=== PATIENT | male | born 1980 | race Caucasian/White ===

== ENCOUNTER 2017-12-27 08:32 | Inpatient (IN) | payer SELFPAY ==
[~2017-12-27] VITALS: Ht 185.4 cm; Wt 76.4 kg
[2017-12-27] VITALS (8 sets, daily range): BP systolic 104–128; BP diastolic 55–69; PULSE 69–82; RESP 18–20; TEMP 97.8–98.7; O2SAT 95–98
[2017-12-27] MEDS ORDERED: ATRITAB PO (08:38)
[2017-12-27] MEDS ORDERED: KETOROLAC TROMETHAMINE 30 MG/ML (IVP) VIAL IV PUSH ONE (08:45)
--- NOTE | 2017-12-27 08:49 | PD ---
HPI Chief Complaint: Cold / Flu Symptoms Time Seen by Provider: 08:38 Travel History International Travel<30 days: No Contact w/Intl Traveler<30days: No Traveled to known affect area: No History of Present Illness HPI 37yo M with PMH of HIV on HAART with CD4 count in the 800s presents to the ED with c/o right sided chest pain and rib pain for 2 days. Associated with cough that has blood in sputum and sob. Pain is worst with lying down and movement. Denies any fever, n/v, abdominal pain, focal weakness or numbness. Denies any trauma or fall. PFSH Past Medical History Diminished Hearing: No Immune Disorder: Yes (HIV) Influenza Vaccination: No ?: Not Social History Alcohol Use: No Tobacco Use: Yes Allergies-Medications (Allergen,Severity, Reaction): Coded Allergies: No Known Allergies (Verified Allergy, Unknown, 12/27/17) Reported Meds & Prescriptions Reported Meds & Active Scripts Active Reported Atripla (Dnmunmskh-Lrybhlvedlnyu-Cicascfrn) 600-200-300 Mg Tab 1 Tab PO DAILY Take on an empty stomach. Review of Systems Except as stated in HPI: all other systems reviewed are Neg Physical Exam Narrative GENERAL: 37yo M in mild distress. SKIN: Focused skin assessment warm/dry. HEAD: Atraumatic. Normocephalic. EYES: Pupils equal and round. No scleral icterus. No injection or drainage. ENT: No nasal bleeding or discharge. Mucous membranes pink and moist. NECK: Trachea midline. No JVD. CARDIOVASCULAR: Regular rate and rhythm. No murmur appreciated. RESPIRATORY: No accessory muscle use. Clear to auscultation. Breath sounds equal bilaterally. GASTROINTESTINAL: Abdomen soft, non-tender, nondistended. MUSCULOSKELETAL: +TTP right anterior lower rib. No rash. No crepitus. NEUROLOGICAL: Awake and alert. No obvious cranial nerve deficits. Motor grossly within normal limits. Normal speech. PSYCHIATRIC: Appropriate mood and affect; insight and judgment normal. Data Data Last Documented VS Vital Signs Date Time Temp Pulse Resp B/P (MAP) Pulse Ox O2 Delivery O2 Flow Rate FiO2 12/27/17 10:03 18 12/27/17 09:44 72 113/62 (79) 97 Room Air 12/27/17 08:35 97.9 Orders Orders Ribs, Uni (W/Exp Cxr-Min 3vw) (12/27/17 ) Complete Blood Count With Diff (12/27/17 08:42) Basic Metabolic Panel (Bmp) (12/27/17 08:42) Prothrombin Time / Inr (Pt) (12/27/17 08:42) Act Partial Throm Time (Ptt) (12/27/17 08:42) Troponin I (12/27/17 08:42) Ct Pulmonary Angiogram (12/27/17 ) Ketorolac Inj (Toradol Inj) (12/27/17 08:45) Electrocardiogram (12/27/17 ) Influenzae A/B Antigen (12/27/17 08:44) Iohexol 350 Inj (Omnipaque 350 Inj) (12/27/17 09:23) Admit To Inpatient (12/27/17 ) Drafter Structural / Telemetry DIRK.Q8H (12/27/17 09:46) Intake + Output DIRK.QSHIFT (12/27/17 09:46) Resp Pulse Oximetry (12/27/17 ) Heparin Inj (Heparin Inj) (12/27/17 09:46) Heparin Inj (Heparin Inj) (12/27/17 16:00) Heparin-D5w 25,000 U/250 Ml (Heparin-D5w (12/27/17 10:00) Act Partial Throm Time (Ptt) (12/27/17 16:46) Morphine Inj (Morphine Inj) (12/27/17 10:00) Heparin Inj (Heparin Inj) (12/27/17 16:00) Admit Order (Ed Use Only) (12/27/17 10:15) Labs Laboratory Tests Test 12/27/17 08:55 White Blood Count 7.7 TH/MM3 Red Blood Count 4.85 MIL/MM3 Hemoglobin 14.2 GM/DL Hematocrit 43.0 % Mean Corpuscular Volume 88.8 FL Mean Corpuscular Hemoglobin 29.2 PG Mean Corpuscular Hemoglobin Concent 32.9 % Red Cell Distribution Width 13.1 % Platelet Count 211 TH/MM3 Mean Platelet Volume 7.1 FL Neutrophils (%) (Auto) 70.2 % Lymphocytes (%) (Auto) 19.9 % Monocytes (%) (Auto) 6.9 % Eosinophils (%) (Auto) 2.6 % Basophils (%) (Auto) 0.4 % Neutrophils # (Auto) 5.5 TH/MM3 Lymphocytes # (Auto) 1.5 TH/MM3 Monocytes # (Auto) 0.5 TH/MM3 Eosinophils # (Auto) 0.2 TH/MM3 Basophils # (Auto) 0.0 TH/MM3 CBC Comment DIFF FINAL Differential Comment Prothrombin Time 10.2 SEC Prothromb Time International Ratio 1.0 RATIO Activated Partial Thromboplast Time 26.8 SEC Blood Urea Nitrogen 10 MG/DL Creatinine 0.75 MG/DL Random Glucose 97 MG/DL Calcium Level 9.1 MG/DL Sodium Level 138 MEQ/L Potassium Level 3.9 MEQ/L Chloride Level 105 MEQ/L Carbon Dioxide Level 26.5 MEQ/L Anion Gap 7 MEQ/L Estimat Glomerular Filtration Rate 119 ML/MIN Troponin I LESS THAN 0.02 NG/ML MDM Medical Decision Making Medical Screen Exam Complete: Yes Emergency Medical Condition: Yes Interpretation(s) EKG: NSR 70bpm. Normal axis. 1mm ST elevation i nV2. No reciprocal changes. Likely early repolarization. Differential Diagnosis Pneumonia vs. musculoskeletal pain vs. PE vs. rib fracture vs. TB Narrative Course 37yo M with HIV on HAART with CD 4 count in the 800s here with sob and right sided chest pain for 2 days. Also with blood tinged sputum. Labs reviewed, no leukocytosis. Troponin negative. Influenza negative. CXR/xray right ribs showed no fracture. There is persistent 2mm area of parenchymal opacity in inferior left hemithorax. Consider CT. CT angio showed moderate pulmonary emboli load with basilar airspace opacity and wedged shaped opacity within lingula concerning for an area of pulmonary infarct. Pt started on heparin drip for PE. Pt is hemodynamically stable with saturating at 97-99% on RA. BP normal. Discussed with Dr. Gerardo who requested I call cardiothoracic surgery. I spoke with Dr. Bustillo from CT surgery and he said there is nothing surgical and to treat the PE. Critical Care Narrative Aggregate critical care time was 40 minutes. Time to perform other separately billable procedures was not included in the critical care time. My time did not include minutes spent treating any other patients simultaneously or on activities that did not directly contribute to the patient's treatment. The services I provided to this patient were to treat and/or prevent clinically significant deterioration that could result in: cardiovascular collapse or . I provided critical care services requiring my management, as noted below: Chart data review, documentation time, medication orders and management, vital sign assessments/reviewing monitor data, ordering and reviewing lab tests, ordering and interpreting/reviewing x-rays and diagnostic studies, care of the patient and discussion of the patient with the admitting physicians. Diagnosis Primary Impression: Bilateral pulmonary embolism Admitting Information Admitting Physician Requests: Admit Scripts Oxycodone-Acetaminophen (Percocet) 10-325 mg Tab 1 TAB PO Q6H Y for PAIN, #60 TAB 0 Refills Prov: Chandler Gerardo MD 12/28/17 Rivaroxaban (Xarelto) 20 Mg Tab 20 MG PO DIRECTED for Blood Clot Prevention, #30 TAB 0 Refills start taking 1 tab a day after completing 15 mg supply regimen. Prov: Chandler Gerardo MD 12/28/17 Rivaroxaban (Xarelto) 15 Mg Tab 15 MG PO Q12HR for Blood Clot Prevention, #42 TAB 0 Refills Prov: Chandler Gerardo MD 12/28/17 Cici Germain DO Dec 27, 2017 08:49
[2017-12-27 09:08] LABS: CHLORIDE 105 MEQ/L (98-107); SODIUM (NA) 138 MEQ/L (136-145)
[2017-12-27 09:10] LABS: CALCIUM 9.1 MG/DL (8.5-10.1)
[2017-12-27 09:11] LABS: BICARBONATE 26.5 MEQ/L (21.0-32.0); BLOOD UREA NITROGEN 10 MG/DL (7-18); GLUCOSE,RANDOM 97 MG/DL (74-106)
[2017-12-27 09:14] LABS: CREATININE 0.75 MG/DL (0.60-1.30); GLOMERULAR FILTRATION RATE 119 ML/MIN (>89)
[2017-12-27 09:15] LABS: PROTHROMBIN TIME - PATIENT 10.2 SEC (9.8-11.6)
[2017-12-27 09:18] LABS: TROPONIN I LESS THAN 0.02 NG/ML (0.02-0.05)
--- NOTE | 2017-12-27 09:18 | RADRPT ---
EXAM DATE/TIME: 12/27/2017 08:58 [facility] COMPARISON: No previous studies available for comparison. INDICATIONS : Cough, short of breath, right lower chest pains MEDICAL HISTORY : Blood clots SURGICAL HISTORY : None. ENCOUNTER: Initial ACUITY: 3 days PAIN SCORE: 10/10 LOCATION: Right lower chest FINDINGS: Multiple views of the right ribs were performed. There is no evidence of displaced fracture. No joon tructive lesions or areas of periosteal thickening are seen. Expiratory view of the chest is negativ e for pneumothorax. There is a small area of persistent opacity involving the left lower lobe measur ing approximately 2 cm in dimension. The mediastinal structures are midline. CONCLUSION: #1. No evidence of a fracture or parenchymal abnormalities identified in the right hemithorax. 2. There is a persistent 2 mm area of parenchymal opacity involving the inferior left hemithorax. Con hamper maker further evaluation with CT to exclude a concerning lesion. Zoie Ibrahim MD on December 27, 2017 at 9:13 Board Certified Radiologist. This report was verified electronically.
[2017-12-27 09:22] LABS: AUTOMATED NEUTROPHIL # 5.5 TH/MM3 (1.8-7.7); BASOPHIL % 0.4 % (0.0-2.0); EOSINOPHIL # 0.2 TH/MM3 (0-0.4); EOSINOPHIL % 2.6 % (0.0-4.0); HEMOGLOBIN 14.2 GM/DL (13.0-17.0); LYMPH % 19.9 % (9.0-44.0); LYMPHOCYTE # 1.5 TH/MM3 (1.0-4.8); MEAN CELL VOLUME 88.8 FL (80.0-100.0); MEAN CORPUSCULAR HEMOGLOBIN 29.2 PG (27.0-34.0); MEAN CORPUSCULAR HGB CONC 32.9 % (32.0-36.0); MEAN PLATELET VOLUME 7.1 FL (7.0-11.0); MONO % 6.9 % (0.0-8.0); MONOCYTE # 0.5 TH/MM3 (0-0.9); NEUT % 70.2 % (16.0-70.0); PLATELET COUNT 211 TH/MM3 (150-450); RED BLOOD COUNT 4.85 MIL/MM3 (4.50-5.90); RED CELL DISTRIBUTION WIDTH 13.1 % (11.6-17.2); WHITE BLOOD COUNT 7.7 TH/MM3 (4.0-11.0)
[2017-12-27] MEDS ORDERED: IOHEXOL 350 MG/ML 10 ML VIAL (for RAD DIAG) IVCONTRAST ONE (09:23)
--- NOTE | 2017-12-27 09:40 | RADRPT ---
EXAM DATE/TIME: 12/27/2017 09:10 [facility] COMPARISON: RIBS RIGHT(W PA CXR MIN 3VWS), December 27, 2017, 8:58. INDICATIONS : Cought, chest and right rib pain. IV CONTRAST: 100 cc Omnipaque 350 (iohexol) IV RADIATION DOSE: 10.76 CTDIvol (mGy) MEDICAL HISTORY : HIV,DVTS,Smoker SURGICAL HISTORY : None. ENCOUNTER: Initial ACUITY: 2 days PAIN SCALE: 10/10 LOCATION: Right chest TECHNIQUE: Volumetric scanning of the chest was performed using a pulmonary embolism protocol MIP images were re constructed. Using automated exposure control and adjustment of the mA and/or kV according to patien t size, radiation dose was kept as low as reasonably achievable to obtain optimal diagnostic quality images. DICOM format image data is available electronically for review and comparison. Follow-up recommendations for detected pulmonary nodules are based at a minimum on nodule size and pa tient risk factors according to Fleischner Society Guidelines. FINDINGS: PULMONARY ARTERIES: There are multiple filling defects identified within the bilateral pulmonary arteries predominantly w ithin the bilateral lower lobes but also seen within the pulmonary vessels extending into the right u pper lobe and to a lesser extent the left upper lobe. LUNGS: The lungs are significant for wedge-shaped opacities identified within the lingula corresponding to t he area of opacity seen on comparison chest x-ray. There are basilar areas of interstitial groundglas s opacity identified in the right lower lobes which may reflect atelectasis. The right-sided pleural effusion. PLEURAE: There is no pleural thickening or pleural effusion. MEDIASTINUM: There is good visualization of the great vessels of the middle mediastinum. No evidence of mediastin al or hilar adenopathy/mass. MUSCULOSKELETAL: Within normal limits for patient age. MISCELLANEOUS: The visualized upper abdominal organs demonstrate no acute abnormality. CONCLUSION: Moderate pulmonary emboli load with basilar airspace opacity and wedge-shaped opacity within the ling belgica concerning for an area of pulmonary infarct.. Zoie Ibrahim MD on December 27, 2017 at 9:31 Board Certified Radiologist. This report was verified electronically.
[2017-12-27] MEDS ORDERED: HEPARIN - 10,000 UNITS/ML IV ADDITIVE IV PUSH STA (09:46)
[2017-12-27] MEDS ORDERED: MORPHINE SULFATE 2 MG/ML INJ IV PUSH ONE (10:00)
[2017-12-27] MEDS: HEPARIN-D5W 25,000 U/250 ML 250 ML IV PRN (10:15)
[2017-12-27] MEDS ORDERED: HEPARIN SODIUM - IV 10,000 UNITS/10 ML VIAL IV PUSH STA (10:18)
[2017-12-27] MEDS ORDERED: ACETAMINOPHEN/HYDROcodone 325 MG/5 MG TAB PO PRN (12:30)
--- NOTE | 2017-12-27 15:30 | HHI.HP ---
[facility] No Primary Care Physician Admission Diagnosis Bilateral pulmonary embolism Diagnoses: Chief Complaint: Chest pain and shortness of breath Travel History International Travel<30 Days: No Contact w/Intl Traveler <30 Da: No Traveled to Known Affected Are: No History of Present Illness 37-year-old white male being admitted for bilateral pulmonary emboli with possible pulmonary infarction. Patient reports being in his usual state of health until about 2 days ago when he began to be 8 and shortness of breath and hemoptysis. This was followed by some right sided chest pain that would get worse with breathing. The chest pain progressively became very severe. He took some aspirin and Tylenol to go avail. He decided come to the ER. Patient states that he recently moved down here to [place] over a week ago from [place], method travel was by flight. Patient states he's had a history of blood clots in the past, one "outside of his heart" along with in his arm and his leg. These occurred all around the same time about 11 years ago and was being treated for a hospital in [place]. He himself does not recall any definitive diagnosis for his hypercoagulable state or risk of thromboembolism's. Review of Systems Except as stated in HPI: all other systems reviewed are Neg Past Family Social History Past Medical History Prior history of multiple venues thromboembolisms HIV Allergies: Coded Allergies: No Known Allergies (Verified Allergy, Unknown, 12/27/17) Social History Smoke cigarettes and pot Physical Exam Vital Signs Vital Signs Date Time Temp Pulse Resp B/P (MAP) Pulse Ox O2 Delivery O2 Flow Rate FiO2 12/27/17 14:13 73 12/27/17 14:04 20 12/27/17 11:00 98.3 69 20 104/59 (74) 95 12/27/17 10:52 12/27/17 10:24 18 12/27/17 10:03 18 12/27/17 09:44 72 18 113/62 (79) 97 Room Air 12/27/17 09:44 97 Room Air 12/27/17 08:38 18 98 12/27/17 08:35 97.9 76 18 128/64 (85 98 Physical Exam VS: afebrile GENERAL: Appears to be in pain, lying in bed, well-nourished young male SKIN: Warm and dry. EYES: No scleral icterus. No injection or drainage. ENT: No nasal bleeding or discharge. Mucous membranes pink and moist. Has a whitish discharge in his posterior oropharynx CARDIOVASCULAR: Regular rate and rhythm. no murmurs RESPIRATORY: No accessory muscle use. Clear to auscultation. is splinting at end inspiration GASTROINTESTINAL: Abdomen soft, non-tender, nondistended. Hepatic and splenic margins not palpable. Extremities: No clubbing, cyanosis, or edema. No obvious deformities. MUSCULOSKELETAL: grossly intact ROM with 5/5 strength in upper and lower extremities proximally; adequate muscle bulk and tone for age and habitus NEUROLOGICAL: Awake and alert. No obvious cranial nerve deficits. No facial droop nor slurred speech noted. PSYCHIATRIC: Appropriate mood and affect; insight and judgment normal. Laboratory Laboratory Tests Test 12/27/17 08:55 White Blood Count 7.7 Red Blood Count 4.85 Hemoglobin 14.2 Hematocrit 43.0 Mean Corpuscular Volume 88.8 Mean Corpuscular Hemoglobin 29.2 Mean Corpuscular Hemoglobin Concent 32.9 Red Cell Distribution Width 13.1 Platelet Count 211 Mean Platelet Volume 7.1 Neutrophils (%) (Auto) 70.2 Lymphocytes (%) (Auto) 19.9 Monocytes (%) (Auto) 6.9 Eosinophils (%) (Auto) 2.6 Basophils (%) (Auto) 0.4 Neutrophils # (Auto) 5.5 Lymphocytes # (Auto) 1.5 Monocytes # (Auto) 0.5 Eosinophils # (Auto) 0.2 Basophils # (Auto) 0.0 CBC Comment DIFF FINAL Differential Comment Prothrombin Time 10.2 Prothromb Time International Ratio 1.0 Activated Partial Thromboplast Time 26.8 Blood Urea Nitrogen 10 Creatinine 0.75 Random Glucose 97 Calcium Level 9.1 Sodium Level 138 Potassium Level 3.9 Chloride Level 105 Carbon Dioxide Level 26.5 Anion Gap 7 Estimat Glomerular Filtration Rate 119 Troponin I LESS THAN 0.02 Date/Time Source Procedure Growth Status 12/27/17 08:55 Nasal Aspirate Influenza Types A,B Antigen (PETE) - Final NEGATIVE FOR FLU A AND B ANTIGEN.... Complete Result Diagram: 12/27/17 0855 12/27/17 0855 Imaging Last Impressions Ribs X-Ray 12/27/17 0000 Signed Impressions: Service Date/Time: Wednesday, December 27, 2017 08:58 - CONCLUSION: #1. No evidence of a fracture or parenchymal abnormalities identified in the right hemithorax. 2. There is a persistent 2 mm area of parenchymal opacity involving the inferior left hemithorax. Consider further evaluation with CT to exclude a concerning lesion. Zoie Ibrahim MD CT Angiography 12/27/17 0000 Signed Impressions: Service Date/Time: Wednesday, December 27, 2017 09:10 - CONCLUSION: Moderate pulmonary emboli load with basilar airspace opacity and wedge-shaped opacity within the lingula concerning for an area of pulmonary infarct.. MD Joel Alcazar VTE Risk Assessment Caprini VTE Risk Assessment: Mod/High Risk (score >= 2) Caprini Risk Assessment Model Point Value = 1 Point Value = 2 Point Value = 3 Point Value = 5 Age 41-60 Minor surgery BMI > 25 kg/m2 Swollen legs Varicose veins or History of unexplained or recurrent spontaneous Oral contraceptives or hormone replacement Sepsis (< 1 month) Serious lung disease, including pneumonia (< 1 month) Abnormal pulmonary function Acute myocardial infarction Congestive heart failure (< 1 month) History of inflammatory bowel disease Medical patient at bed rest Age 61-74 Arthroscopic surgery Major open surgery (> 45 min) Laparoscopic surgery (> 45 min) Malignancy Confined to bed (> 72 hours) Immobilizing plaster cast Central venous access Age >= 75 History of VTE Family history of VTE Factor V Leiden Prothrombin [id number] Lupus anticoagulant Anticardiolipin antibodies Elevated serum homocysteine Heparin-induced thrombocytopenia Other congenital or acquired thrombophilia Stroke (< 1 month) Elective arthroplasty Hip, pelvis, or leg fracture Acute spinal cord injury (< 1 month) Prophylaxis Regimen Total Risk Factor Score Risk Level Prophylaxis Regimen 0-1 Low Early ambulation 2 Moderate Order ONE of the following: *Sequential Compression Device (SCD) *Heparin 5000 units SQ BID 3-4 Higher Order ONE of the following medications: *Heparin 5000 units SQ TID *Enoxaparin/Lovenox 40 mg SQ daily (WT < 150 kg, CrCl > 30 mL/min) *Enoxaparin/Lovenox 30 mg SQ daily (WT < 150 kg, CrCl > 10-29 mL/min) *Enoxaparin/Lovenox 30 mg SQ BID (WT < 150 kg, CrCl > 30 mL/min) AND/OR *Sequential Compression Device (SCD) 5 or more Highest Order ONE of the following medications: *Heparin 5000 units SQ TID (Preferred with Epidurals) *Enoxaparin/Lovenox 40 mg SQ daily (WT < 150 kg, CrCl > 30 mL/min) *Enoxaparin/Lovenox 30 mg SQ daily (WT < 150 kg, CrCl > 10-29 mL/min) *Enoxaparin/Lovenox 30 mg SQ BID (WT < 150 kg, CrCl > 30 mL/min) AND *Sequential Compression Device (SCD) Assessment and Plan Assessment and Plan 37-year-old white male being admitted for bilateral pulmonary emboli with possible pulmonary infarction Chest pain - PEs - Started on heparin drip protocol especially given possible infarction. I independently reviewed EKG which shows sinus rhythm. - Placed on telemetry - d/w case ED doctor who discussed with cardiothoracic surgery who instructed to treat the pulmonary embolism medically; hemodynamically stable at this time - Etiology may have been recent travel and or tobacco use. We will request outside records to see exactly what the patient's hypercoagulable workup yielded in [place] in the past. - IV morphine for pain control; will obtain echo given severity possibly leading to infarction HIV - continue home meds on heparin drip Physician Certification 2 Midnight Certification Type: Admission for Inpatient Services Order for Inpatient Services The services are ordered in accordance with Medicare regulations or non- Medicare payer requirements, as applicable. In the case of services not specified as inpatient-only, they are appropriately provided as inpatient services in accordance with the 2-midnight benchmark. Estimated LOS (days): 2 2 days is the estimated time the patient will need to remain in the hospital, assuming treatment plan goals are met and no additional complications. Post-Hospital Plan: Home Chandler Gerardo MD Dec 27, 2017 15:30
[2017-12-27] MEDS ORDERED: HEPARIN SODIUM - IV 10,000 UNITS/10 ML VIAL IV PUSH PRN ×2 (16:00)
[2017-12-27] MEDS: MORPHINE SULFATE 2 MG/ML INJ IV PUSH PRN ×2 (16:13→21:12)
[2017-12-27] MEDS: NICOTINE 7 MG/24 HR PATCH T-DERMAL SCH (18:15)
[2017-12-28 00:03] VITALS: BP 113/60; PULSE 71; RESP 18; TEMP 98.8; O2SAT 97
[2017-12-28] MEDS: ACETAMINOPHEN/HYDROcodone 325 MG/7.5 MG TAB PO PRN ×2 (00:05→08:00)
[2017-12-28] MEDS ORDERED: LORazepam 0.5 MG TAB PO ONE (01:30)
[2017-12-28] MEDS: HEPARIN-D5W 25,000 U/250 ML 250 ML IV PRN (01:46)
[2017-12-28] MEDS: MORPHINE SULFATE 2 MG/ML INJ IV PUSH PRN (02:21)
[2017-12-28 07:50] VITALS: BP 116/59; PULSE 73; RESP 20; TEMP 97.9; O2SAT 96
[2017-12-28] MEDS: NICOTINE 7 MG/24 HR PATCH T-DERMAL SCH (07:59)
[2017-12-28 08:12] VITALS: PULSE 80
[2017-12-28] MEDS ORDERED: oxyCODONE/ACETAMINOPHEN 7.5 MG/325 MG TAB PO PRN (09:00)
[2017-12-28] MEDS ORDERED: REMOVE OLD PATCH T-DERMAL SCH (09:00)
[2017-12-28] MEDS ORDERED: INFLUENZA VIRUS VACCINE (QUADRIVALENT) 0.5 ML SYR IM ONE (10:00)
[2017-12-28] MEDS ORDERED: PNEUMOCOCCAL POLYVALENT INJ 25 MCG/0.5 ML SYR IM ONE (10:00)
[2017-12-28] MEDS ORDERED: NON-FORMULARY DRUG (Efavirenz-Emtricitabine-Tenofovir (Atripla) 1 TAB) PO SCH (11:00)
[2017-12-28] MEDS ORDERED: XARE15TA PO (11:04)
[2017-12-28] MEDS ORDERED: XARE20TA PO (11:04)
--- NOTE | 2017-12-28 11:04 | HHI.DCPOC ---
Discharge Care Plan Diagnosis: (1) Pulmonary embolism and infarction (2) Bilateral pulmonary embolism Goals to Promote Your Health * To prevent worsening of your condition and complications * To maintain your health at the optimal level Directions to Meet Your Goals Take your medications as prescribed Follow your dietary instruction Follow activity as directed Keep your appointments as scheduled Take your immunizations and boosters as scheduled If your symptoms worsen call your PCP, if no PCP go to Urgent Care Center or Emergency Room Smoking is Dangerous to Your Health. Avoid second hand smoke Call the 24-hour hour crisis hotline for domestic abuse at Chandler Gerardo MD Dec 28, 2017 11:04
[2017-12-28] MEDS ORDERED: PERC10TA27 PO (11:09)
[2017-12-28 11:50] VITALS: BP 115/58; PULSE 72; RESP 20; TEMP 98.5; O2SAT 95
--- NOTE | 2017-12-28 12:01 | HHI.PR ---
Subjective Remarks Nursing denies any deterioration since last night. Vital signs stable. Patient 's main complaint is still pleuritic chest pain. Objective Vital Signs Date Time Temp Pulse Resp B/P (MAP) Pulse Ox O2 Delivery O2 Flow Rate FiO2 12/28/17 07:50 97.9 73 20 116/59 (78) 96 12/28/17 04:31 12/28/17 00:03 98.8 71 18 113/60 (77) 97 12/27/17 21:23 98.7 76 20 110/55 (73) 96 12/27/17 20:13 98 21 12/27/17 20:00 74 12/27/17 16:18 20 12/27/17 15:00 97.8 82 20 109/69 (82) 96 12/27/17 14:13 73 12/27/17 14:04 20 I/O 12/27/17 12/27/17 12/27/17 12/28/17 12/28/17 12/28/17 07:00 15:00 23:00 07:00 15:00 23:00 Intake Total 581 ml Balance 581 ml Intake Oral 581 ml # Voids 2 3 # Bowel Movements 0 Result Diagram: 12/27/17 0855 12/27/17 0855 Objective Remarks Lung sounds are clear bilaterally Patient is ambulating on his own, and mild distress secondary to pain A/P Assessment and Plan Bilateral pulmonary emboli with possible infarction - Hemodynamically stable, stopping IV pain medication. Will transition to a one- time dose of Lovenox from heparin drip, will discharge home on Xarelto and by mouth pain medication. Outside records still have not been received. Patient was informed that he needs to follow-up with hematology closely given his substantial history of thromboembolism's. Pt has met maximal benefit from hospitalization and is clinically stable for discharge. Chandler Gerardo MD Dec 28, 2017 12:01
--- NOTE | 2017-12-28 12:05 | EKG ---
Date Performed: 12/27/2017 Time Performed: 08:52:35 PTAGE: 37 years EKG: Sinus rhythm ST ELEVATION, PROBABLY EARLY REPOLARIZATION BORDERLINE ECG NO PREVIOUS TRACING DOCTOR: Edin Hester Interpretating Date/Time 12/28/2017 12:04:07
[2017-12-28] MEDS ORDERED: ENOXAPARIN SODIUM 80 MG/0.8 ML SYRINGE SQ ONE (13:00)
--- NOTE | 2017-12-28 15:23 | ECHRPT ---
Indication: PULMONARY INFARCTION WITH PE CONCLUSIONS The left ventricular systolic function is normal with an estimated ejection fraction in the range of 55-60%. Left ventricular diastolic function parameters are normal. Mild mitral valve regurgitation. There is trace tricuspid valve regurgitation. BP: 116 / 59 HR: Rhythm: Sinus MEASUREMENTS (Male / Female) Normal Values Technical Quality:Fair 2D ECHO LV Diastolic Diameter PLAX 5.2 cm 4.2 - 5.9 / 3.9 - 5.3 cm LV Systolic Diameter PLAX 3.6 cm IVS Diastolic Thickness 0.9 cm 0.6 - 1.0 / 0.6 - 0.9 cm LVPW Diastolic Thickness 0.9 cm 0.6 - 1.0 / 0.6 - 0.9 cm LV Relative Wall Thickness 0.3 RV Internal Dim ED PLAX 3.0 cm LVOT Diameter 2.5 cm Aortic Root Diameter 3.1 cm LA Systolic Diameter LX 3.3 cm 3.0 - 4.0 / 2.7 - 3.8 cm M-MODE AV Cusp Separation MM 2.5 cm DOPPLER AV Peak Velocity 116.0 cm/s AV Peak Gradient 5.4 mmHg AV Mean Gradient 3.0 mmHg AV Velocity Time Integral 20.5 cm LVOT Peak Velocity 97.0 cm/s LVOT Peak Gradient 3.8 mmHg LVOT Velocity Time Integral 18.7 cm AV Area Cont Eq vti 4.5 cm AV Area Cont Eq pk 4.1 cm Mitral E Point Velocity 74.0 cm/s Mitral A Point Velocity 73.1 cm/s Mitral E to A Ratio 1.0 LV E' Lateral Velocity 11.5 cm/s Mitral E to LV E' Lateral Ratio 6.4 LV E' Septal Velocity 9.7 cm/s Mitral E to LV E' Septal Ratio 7.7 TR Peak Velocity 278.0 cm/s TR Peak Gradient 30.9 mmHg Right Atrial Pressure 10.0 mmHg Pulmonary Artery Systolic Pressu 40.9 mmHg Right Ventricular Systolic Press 40.9 mmHg PV Peak Velocity 69.9 cm/s PV Peak Gradient 2.0 mmHg FINDINGS LEFT VENTRICLE Normal left ventricular size. Wall thickness is normal. The left ventricular systolic function is normal with an estimated ejection fraction in the range of 55-60%. No regional wall motion abnormalities are present. Left ventricular diastolic function parameters are normal. RIGHT VENTRICLE Normal right ventricular size and systolic function. LEFT ATRIUM The left atrial size is normal. RIGHT ATRIUM The right atrial size is normal. ATRIAL SEPTUM Normal atrial septal thickness. AORTA The aortic root and proximal ascending aorta are normal in size on limited imaging. MITRAL VALVE Structurally normal mitral valve. No mitral valve stenosis. Mild mitral valve regurgitation. AORTIC VALVE Trileaflet aortic valve. No aortic valve stenosis or regurgitation. TRICUSPID VALVE Structurally normal tricuspid valve. There is trace tricuspid valve regurgitation. No tricuspid valve stenosis. PULMONARY VALVE No pulmonary valve regurgitation or stenosis. VESSELS The inferior vena cava is normal in size. PERICARDIUM No pericardial effusion. José Miguel Alvarenga DO (Electronically Signed) Final Date:28 December 2017 15:21
[2017-12-28] MEDS ORDERED: EMTRICITABINE/TENOFOVIR 200 MG/300 MG TAB PO SCH (21:00)
== END 2017-12-28 13:32 | disposition home or self-care (01) | DRG 176 ==
LOC: PHED 08:32 → PHEDA 10:16 → PH3A 11:12
PROVIDERS: ADMIT Hospitalist; ATTEND Hospitalist
DX: I26.99 Other pulmonary embolism without acute cor pulmonale (principal); F17.210 Nicotine dependence, cigarettes, uncomplicated; Z21 Asymptomatic human immunodeficiency virus [HIV] infection status; Z86.718 Personal history of other venous thrombosis and embolism; Z23 Encounter for immunization
CPT/HCPCS: 71101; 71275; 80048; 84484; 85025; 85610; 85730; 87804; 90471; 90686; 90732; 93005; 93306; 96374; G0008; G0009; J1644; J1650; J1885; J2270; Q2038; Q9967